=== PATIENT | male | born 1985 | race Caucasian/White ===

== ENCOUNTER 2017-04-15 22:26 | Emergency (ER) | payer MEDICARE, OTHER ==
[~2017-04-15] VITALS: Ht 188 cm; Wt 77.1 kg
[~2017-04-15 22:26] MED LIST: AMOXICILLIN500 M1 PO; DIAZEPAM PO; IBUPROFEN PO; KEFLEX PO; LORTAB 101 TAB 10/5 PO; MOBIC15 MG PO; NO MEDICATIONS; SUBOXONE 8 MG-1 EAC1 SL; ULTRAM PO; VICODIN 5/500 T1 TAB PO
== END 2017-04-16 00:40 | disposition home or self-care (01) ==
LOC: SED 22:26
DX: K04.7 Periapical abscess without sinus (principal); F17.200 Nicotine dependence, unspecified, uncomplicated
CPT/HCPCS: 41800; 99283